=== PATIENT | male | born 1985 | race Caucasian/White ===

== ENCOUNTER 2024-12-17 22:08 | Inpatient (IN) | payer OTHER, SELFPAY ==
[2024-12-17] VITALS (10 sets, daily range): BP systolic 113–132; BP diastolic 51–80; BMI 26.8; BMI 26.1
--- NOTE | 2024-12-17 19:42 | ED.GENMED ---
History of Present Illness
General
Chief Complaint: Musculo-Skeletal Complaint
Source: patient
Exam Limitations: none
Time Seen by Provider: 12/17/24 19:33
Nursing documentation reviewed up to this point in time: agreed with
History of Present Illness
History of Present Illness:
39-year-old male with no reported chronic medical issues presents to the ER for evaluation of scapular pain. Patient reports onset of symptoms earlier today and they were constant until shortly after arrival here in the ER at which point they seem
to have resolved. He reports a deep aching pain in the left scapular region (essentially along the medial edge of the left scapula) that is localized and nonradiating. He could not reproduce it with movement. Resolved without intervention. He
denies any exertional component�onset while he was at rest. 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 He says that the pain did not feel like typical muscular pain. He
denies any associated shortness of breath, cough, GI symptoms or any other complaints. He denies any known cardiac history, does not take any medications.
Past History
Past History
ED Past Medical History: None
ED Past Surgical History: None
Social History
Tobacco: Non-smoker
Review of Systems
Review of Systems
All Other Systems: ROS reviewed and negative except as documented in HPI and ROS
Respiratory: Denies cough or trouble breathing
Cardiac: Denies chest pain or palpitations
ABD/GI: Denies abdominal pain
Musculoskeletal: Reports other (Scapular pain)
Phy Exam
Physical Exam
Physical Exam:
General: Awake, alert, oriented x3; no acute distress
Head: Normocephalic, atraumatic
Eyes: Conjunctiva normal, sclera anicteric
Throat: Airway intact, handling secretions
Neck: Trachea midline, no JVD noted
Lungs: Clear to auscultation bilaterally, no wheezing, rales, rhonchi
Heart: Regular rate and rhythm, no murmurs, gallops, or rubs
Abd: Soft, non distended, nontender
Back: No reproducible tenderness in the thoracic or lumbar spine or in the scapular region where he reports pain
Neuro: No gross deficits
Skin: no rash in area of concern
Extremities: No edema in extremities, warm and well-perfused
Scores
Heart Failure Risk
Heart Failure Risk Score: Not Applicable
Heart Score for Chest Pain Patients
STEMI patient?: Not applicable
Withdrawal Assessment of Alcohol
Withdrawal Assessment Completed?: Not applicable
Course
Orders/Labs/Results
Orders:
Orders
12/17/24 18:59
Electrocardiogram (*1) Urgent
Reason for Study: Other
Other Reason for Exam: back pain
EKG- Treatment ONCE
12/17/24 19:41
CR Chest - 2 Views Urgent
Comment:
Reason For Exam: left scapular pain
12/17/24 20:06
Complete Blood Count/With Diff Urgent
Comprehensive Metabolic Panel Urgent
D-Dimer Urgent
Troponin I Urgent
12/17/24 20:19
Urinalysis Reflex To Culture Urgent
Date Specimen was Collected: 12/17/24
Time Specimen was Collected: 20:15
12/17/24 21:02
Aspirin Chewable [Low Strength Aspirin] 324 mg PO NOW STA
Heparin 4,000 units IV NOW STA
Pharmacy Request to Place See Dose Instructions PO NOW STA
Discontinue all Active Warfarin orders?: Yes
12/17/24 21:03
PTT Urgent
Comment: Obtain baseline before beginning heparin infusion if not already collected
Nursing to Place Non Medication Order As Directed
Physician Order: PTT 6 hours after initial start of Heparin infusion
12/17/24 21:06
CARDIOLOGY CONSULT Urgent
Consulting Provider: Tulio Martinez
Was physician already notified: Yes
12/17/24 21:15
Heparin 52364 Units/250 ml 25,000 units in 250 ml IV PER PROTOCOL
Weight to be used for heparin protocol in kilograms (kg):: 73
Protocol:: Cardiac Tx/Acute Coronary
PTT Goal Range to be used:: PTT 73 to 111 seconds
Order type:: Initial
INITIAL Infusion Dose (UNITS/KG/hr) & then follow protocol:: 15 units/kg/hr
Infusion Dose in UNITS/hr & then follow protocol (UNITS/hr):: 1,100
INFUSION RATE in mL/hr & then follow protocol (mL/hr):: 11
PTT less than or equal to 64 seconds:: Increase rate by 200 units/hr (+ 2 mL/hr)
PTT 64.1 to 72.9 seconds:: Increase rate by 100 units/hr (+ 1 mL/hr)
PTT 73 to 111 seconds:: Target Range. No change in rate.
PTT 111.1 to 130.9 seconds:: Decrease rate by 100 units/hr (- 1 mL/hr)
PTT 131 to 199.9 seconds:: HOLD for 1 hr. Then decrease rate by 200 units/hr (- 2 mL/hr)
PTT greater than or equal to 200 seconds:: HOLD for 2 hrs & Notify Provider. Then decrease by 200 units/hr (-
2 mL/hr)
Lab follow-up:: Each change, PTT q6h until 2 consecutive are therapeutic. Then PTT
daily.
12/17/24 22:[address] See Dose Instructions IV DIRECTED
12/17/24 23:00
Troponin I Urgent
Abnormal Lab Results
12/17/24
20:06
MCH 31.3 H pg
(27.0-31.0)
Carbon Dioxide 31 H mmol/L
(22-30)
BUN 25 H mg/dl
(9-20)
Glucose 107 H mg/dl
(70-99)
Troponin I 3.340 H* ng/ml
12/17/24 20:06
12/17/24 20:06
Vital Signs
Initial and Last Documented VS:
Initial Vital Signs
Temp Pulse Resp BP Pulse Ox
36.6 C 76 18 132/74 100
12/17/24 19:06 12/17/24 19:06 12/17/24 19:06 12/17/24 19:06 12/17/24 19:06
Last Documented Vital Signs
Temp Pulse Resp BP Pulse Ox
36.6 C 60 20 123/69 98
12/17/24 19:06 12/17/24 20:15 12/17/24 20:15 12/17/24 20:15 12/17/24 20:15
MDM/Problems Addressed
Differential Diagnosis Includes:
Muscular strain, radiculopathy, pneumothorax, costochondritis; anginal equivalent/ACS, PE considered less likely clinically
MDM/Problems Addressed:
39-year-old male presents for evaluation of scapular pain as described above. Started earlier today and seems to have resolved now after few hours. Vitals are normal here. Physical exam as above�not reproducible with movement or palpation. His
EKG shows sinus rhythm no STEMI. Send basic labs, troponin, D-dimer. Check chest x-ray. Monitor for recurrence and reassess after the above.
Labs reviewed: CBC and CMP no clinically significant abnormalities. His D-dimer is negative. His chest x-ray reviewed by me shows no acute disease. Troponin pending.
Patient's troponin came back markedly elevated at 3.3. Consistent with NSTEMI. He is currently asymptomatic. His vital signs are normal. Will provide dose of aspirin and start on heparin infusion. Case discussed with cardiology who agreed with
treatment as above and will consult on patient. Case discussed with hospitalist for admission.
*Radiology
Radiology exam reviewed: preliminary read by ED provider and radiology read reviewed
*Pulse Oximetry
Patient hypoxic: no
*EKG
Interpreted by ED Provider?: Yes
Heart Rate: 66
Rate: normal
Rhythm: sinus
[place]: normal axis
Interval: normal interval
QRS Pattern: normal QRS
Ischemia: no ischemia
*Critical Care Note
Total Time (30-74mins, 75-104mins- exclusive of procedures): Not Applicable
Data Reviewed
Source: patient
Patient Management
Discussion with other providers: Hospitalist (Discussed with hospitalist) and Clam Grower (Discussed with pattern stamper)
Escalation/DeEscalation of care consider admission/obs:
Admission indicated
ED Attending Note
-
Portions of this chart may have been created with voice recognition software.� Occasional wrong word or��sound alike� substitutions may have occurred due to the inherent limitations of voice recognition software.
Discharge Plan
Departure
Patient Disposition: Admit
Date of Disposition: 12/17/24
Time of Disposition: 21:12
Admit to doctor: Shayne
Presentation/result/management discussed w/ accepting MD/DO: Hospitalist
Discharge Problem:
Non-ST elevation MT (NSTEMI)
Prescriptions:
No Action
Daily Vitamins
1 dose PO DAILY
Referrals:
UNKNOWN - PT NOT,INTERVIEWE [Family Provider] -
Interventions
Interventions:
*Risk Screen - Suicide Last Done: 12/17/24 19:06
*General Assessment Last Done: 12/17/24 19:24
*Neglect/Abuse Screening Last Done: 12/17/24 19:06
*ED- Fall Risk Assessment Last Done: 12/17/24 19:24
*ED COVID-19 Vaccine History Last Done: 12/17/24 19:24
ED-Musculoskeletal Assessment Last Done: 12/17/24 19:24
Discharge Date and Time
Print Language: PALAUAN
[2024-12-17 20:14] LABS: % Basophils 0.3 % (0-2); % Eosinophils 2.1 % (0-6); % Immature Granulocytes 0.2 % (0-0.5); % Lymphocytes 35.3 % (20.5-51.1); % Monocytes 8.5 % (1.7-9.3); % Neutrophils 53.6 % (42.2-75.2); Absolute Eosinophils 0.1 10^3/uL (0-0.7); Absolute Monocytes 0.5 10^3/uL (0.1-0.6); Absolute Neutrophils 3.1 10^3/uL (1.4-6.5); Hematocrit 41.8 % (39.0-52.0); Hemoglobin 14.7 g/dL (13.0-18.0); Mean Corp Hgb Conc. 35.2 g/dL (33.0-37.0); Mean Corpuscular Hgb 31.3 pg (27.0-31.0); Mean Corpuscular Volume 88.9 fL (80.0-94.0); Mean Platelet Volume 9.8 fL (7.4-10.4); Nucleated Red Blood Cells % 0 % (-); Platelet Count 185 10^3/uL (130-400); Red Cell Dist. Width 11.8 % (11.5-14.5); White Blood Cell Count 5.8 10^3/uL (4.8-10.8)
[2024-12-17 20:27] LABS: D-Dimer < 0.27 ug/mlFEU (0.00-0.50)
[2024-12-17 20:28] LABS: ALT (SGPT) 46 U/L (0-50); AST (SGOT) 53 U/L (17-59); Albumin 4.5 g/dl (3.5-5.0); Alkaline Phosphatase 65 U/L (38-126); Blood Urea Nitrogen 25 mg/dl (9-20); Calcium 9.8 mg/dl (8.4-10.2); Carbon Dioxide 31 mmol/L (22-30); Chloride 100 mmol/L (98-107); Estimated Creatinine Clearance 66 ml/min; Glucose 107 mg/dl (70-99); Potassium 3.7 mmol/L (3.5-5.1); Sodium 142 mmol/L (135-145); Total Bilirubin 0.5 mg/dl (0.2-1.3); Total Protein 7.5 g/dl (6.3-8.2); eGFR > 60.00
[2024-12-17 20:30] LABS: Urine Albumin Negative (Neg - Trace); Urine Bilirubin Negative (Negative); Urine Character Clear (Clear); Urine Glucose Negative (Negative); Urine Ketone Negative (Negative); Urine Leukocyte Negative (Negative); Urine Nitrite Negative (Negative); Urine Occult Blood Negative (Negative); Urine Specific Gravity 1.005 (<1.030); Urine Urobilinogen Negative (Neg - 1+)
[2024-12-17 20:33] LABS: Urine Color Straw
[2024-12-17] MEDS: LOW STRENGTH ASPIRIN 324 MG PO (21:20)
--- NOTE | 2024-12-17 21:27 | HPS.HSE ---
Family Physician
-
Family Physician: INTERVIEWE UNKNOWN - PT NOT
Chief Complaint
-
scapular pain
History of Present Illness
39-year-old male without medical history presenting with deep mild aching pain in the left scapular region that is localized and nonradiating. Symptoms started today and was constant until it resolved here in the ER. He could not reproduce it with
movement. He denies any worsening of symptoms with exertion since it occurred at rest. He denies any injury. 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 Pain did not feel like muscular pain. Denies shortness of breath. Denies cough. Denies
nausea vomiting or diarrhea.
He states that he has had similar pain like this in various areas in his back over the years but did not think anything of it.
He does not smoke or use any drugs. Drinks alcohol occasionally.
The only supplement he uses is creatinine.
His mother's mother had heart disease, his aunt on father side also had heart disease.
Medical History
Past Medical History
Past Medical History: Reports None
Past Surgical History: Reports None
Social History
Tobacco: Non-smoker
Alcohol: Occasional
Drug: None
Family History
Family History: CAD
Allergies / Home Medications
Allergies reflects when Allergies were last updated in [facility].
Home Medications with original date entered in [facility]
Allergy/Medication List:
Home Medications Table - record
�Medication �Instructions �Recorded �Confirmed
Daily Vitamins 1 dose PO DAILY 12/17/24 12/17/24
Review of Systems
-
History Source: Patient
A 12 point ROS was completed and negative except as noted: Yes
Constitutional: Reports No Symptoms
EENT: Reports No Symptoms
Respiratory: Reports No Symptoms
Cardiac: Reports No Symptoms
Abdomen/GI: Reports No Symptoms
: Reports No Symptoms
Musculoskeletal: Reports No Symptoms
Skin: Reports No Symptoms
Neurological: Reports No Symptoms
Endocrine: Reports No Symptoms
Hematologic/Lymphatic: Reports No Symptoms
Psych: Reports No Symptoms
Physical Exam
Vital Signs
Vital Signs
Temp Pulse Resp BP Pulse Ox
97.8 F 60 20 123/69 98
12/17/24 19:06 12/17/24 20:15 12/17/24 20:15 12/17/24 20:15 12/17/24 20:15
Physical Exam
General: Well Developed, Well Nourished and No Apparent Distress
HEENT: NormoCephalic, Moist mucous membranes and Atraumatic
Respiratory: Clear
Cardiac: S1/S2 and Regular Rhythm; No Murmur or Rub
GI: Soft, Non Tender, Non Distended and Normal Bowel Sounds; No Organomegaly
Rectal: Deferred by Provider
Musculoskeletal: No Clubbing, No Cyanosis and No Edema
Skin: No Rash
Neuro: Nonfocal/grossly intact
Laboratory Results
-
12/17/24 20:06
12/17/24 20:06
Laboratory Results
Total Bilirubin 0.5 mg/dl (0.2-1.3) 12/17/24 20:06
AST 53 U/L (17-59) 12/17/24 20:06
ALT 46 U/L (0-50) 12/17/24 20:06
Alkaline Phosphatase 65 U/L (38-126) 12/17/24 20:06
Troponin I 3.340 ng/ml H* 12/17/24 20:06
Data Reviewed
-
Lab Data: Labs Reviewed by me
Old Records: Reviewed
Impression/Plan
-
IMPRESSION:
PLAN:
# NSTEMI
- EKG shows normal sinus rhythm without any ischemic changes
- Troponin of 3.3, continue to trend
- Aspirin, heparin drip
-Check A1c and lipid panel
-N.p.o. past midnight in case catheterization performed tomorrow
- Cardiology consulted
Full code
DVT prophylaxis�heparin
N.p.o. past midnight
[2024-12-17] MEDS: HEPARIN 4000 UNITS IV (22:30)
[2024-12-17] MEDS: HEPARIN 25000 UNITS/250 ML IV (22:31)
[2024-12-17 22:38] LABS: APTT 28.3 Sec (23.4-35.0)
[2024-12-18] VITALS (13 sets, daily range): BP systolic 99–116; BP diastolic 57–80
[2024-12-18 00:32] LABS: HDL Cholesterol 58 mg/dl; LDL Cholesterol, Calculated 127 mg/dl; Total Cholesterol 207 mg/dl (50-199); Triglyceride 110 mg/dl (10-149); Very Low Density Lipoprotein 22 mg/dl (0-30)
--- NOTE | 2024-12-18 00:59 | PTCARENOTE ---
Pt. admitted to room 2252 from ED AAOx3, independent and ambulatory, VSS, NSR-SB (50's) on the monitor. Denies any chest/back discomfort. Oriented to room and plan of care, NPO for possible cath later today. Understanding verbalized.
[2024-12-18 05:21] LABS: % Basophils 0.5 % (0-2); % Eosinophils 2.2 % (0-6); % Immature Granulocytes 0.2 % (0-0.5); % Lymphocytes 41.2 % (20.5-51.1); % Monocytes 10.3 % (1.7-9.3); % Neutrophils 45.6 % (42.2-75.2); Absolute Eosinophils 0.1 10^3/uL (0-0.7); Absolute Lymphocytes 2.3 10^3/uL (1.2-3.4); Absolute Monocytes 0.6 10^3/uL (0.1-0.6); Absolute Neutrophils 2.5 10^3/uL (1.4-6.5); Hematocrit 39.7 % (39.0-52.0); Hemoglobin 13.5 g/dL (13.0-18.0); Mean Corpuscular Hgb 30.8 pg (27.0-31.0); Mean Corpuscular Volume 90.6 fL (80.0-94.0); Mean Platelet Volume 10.2 fL (7.4-10.4); Nucleated Red Blood Cells % 0 % (-); Platelet Count 174 10^3/uL (130-400); Red Blood Cell Count 4.38 10^6/uL (4.70-6.10); Red Cell Dist. Width 11.9 % (11.5-14.5); White Blood Cell Count 5.5 10^3/uL (4.8-10.8)
[2024-12-18 05:48] LABS: ALT (SGPT) 36 U/L (0-50); AST (SGOT) 44 U/L (17-59); Albumin 3.7 g/dl (3.5-5.0); Alkaline Phosphatase 53 U/L (38-126); Blood Urea Nitrogen 24 mg/dl (9-20); Carbon Dioxide 29 mmol/L (22-30); Chloride 105 mmol/L (98-107); Estimated Creatinine Clearance 81 ml/min; Glucose 100 mg/dl (70-99); Potassium 3.8 mmol/L (3.5-5.1); Sodium 143 mmol/L (135-145); Total Bilirubin 0.5 mg/dl (0.2-1.3); Total Protein 6.2 g/dl (6.3-8.2); eGFR > 60.00
[2024-12-18 05:59] LABS: APTT 51.8 Sec (23.4-35.0)
--- NOTE | 2024-12-18 07:35 | CON.CAR ---
Addendum entered and electronically signed by Gabriel Machado DO 12/18/24 11:08:
I saw and examined the patient.
The Time Buyer's note was reviewed and I agree with the note.
Comment:
Plan:
Trop 4.6 and still trending, cont to trend until it peaks.
Chest pain concerning for NSTEMI vs coronary dissection vs myocarditis and discussed further eval with left heart cath and pt is agreeable.
Echo is pending
Cont IV Heparin
Cont ASA
Add Toprol XL 12.5 mg daily
Add statin, LDL 127
Monitor EKG, last EKG stable.
Further rec to follow pending clinical course.
Discussed with and nursing at bedside.
HPI: Patient came to [facility] ER last night with chest pain and was admitted with elevated Troponin and cardiology has been consulted. 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
into Wednesday morning, it woke him from sleep. The pain went away and then returned while standing in the kitchen last night making dinner and he felt a sense of dread/doom that caused him to come to the ER. Patient says that he has had aches and
pains before that felt similar in location and intensity, but this pain made him scared and so he came to the ER and his initial Troponin was 3.3 and then second Troponin was 4.6. Patient has not had recurrence of pain since admission. Patient
denies taking supplements other than creatine, he says he does not use any performance enhancing drugs and does not drink excessive caffeine. No strong Fh of premature CAD.
Distant smoker quit over 20 yrs ago
Original Note:
Consultation
Consultation Request
Date/Time Consultation Requested: 12/17/24 at 2106
Date/Time Consultation Performed: 12/18/24 at 0737
Requesting Provider: Dr. Bailey
Performing Provider: Dr. Ingram
Reason for Consultation: Chest pain, elevated Troponin
Medical History
-
History of Present Illness:
Patient came to [facility] ER last night with chest pain and was admitted with elevated Troponin and cardiology has been consulted. 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
Wednesday morning, it woke him from sleep. The pain went away and then returned while standing in the kitchen last night making dinner and he felt a sense of dread/doom that caused him to come to the ER. Patient says that he has had aches and pains
before that felt similar in location and intensity, but this pain made him scared and so he came to the ER and his initial Troponin was 3.3 and then second Troponin was 4.3. Patient has not had recurrence of pain since admission. Patient denies
taking supplements other than creatine, he says he does not use any performance enhancing drugs and does not drink excessive caffeine. No strong Fh of premature CAD.
PMH:
None
Past Medical History
Past Medical History: Other (in HPI)
Past Surgical History: None
Social History
Tobacco: Former Smoker (smoked from teenager to very early 19w)
Alcohol: Other (2-4 glasses of wine on a weekend)
Drug: None
Personal:
Living: With Family
Family History
Family History: Other (parents and brother healthy, maternal grandmother with CHF. Patient's 3 y/o son was recently diagnosed as a type 1 diabetic)
Allergies / Home Medications
Allergy/AdvReac Type Severity Reaction Status Date / Time
No Known Allergies Allergy Unverified 03/06/20 18:20
�Medication �Instructions �Recorded �Confirmed �Type
Daily Vitamins 1 dose PO DAILY 12/17/24 12/17/24 History
Review of Systems
-
History Source: Patient
All other systems: Negative unless noted
Physical Exam
Vital Signs
Temp Pulse Resp BP Pulse Ox
97.7 F 56 18 104/64 100
12/18/24 03:56 12/18/24 05:00 12/18/24 03:56 12/18/24 03:55 12/18/24 03:56
GEN: NAD. AAOx3
HEENT: EOMI, MMM
LUNGS: RA. CTA B/L, no wheeze
CV: SR on tele. Reg, S1/S2, no murmur
ABD: soft, BS+, NT, ND
EXT: No clubbing, cyanosis, lesions or edema B/L
NEURO: Gross non-focal
SKIN: Warm, dry and pink. No rash
Lab Results
12/18/24 04:00
12/18/24 04:00
Troponin I Cancelled 12/18/24 11:35
Impression / Plan
-
PCP: [facility]
Card: None
Impression:
Chest pain and elevated Troponin on admission 12/17/24
Chest pain, possible ACS
Elevated Troponin
Hyperglycemia
Echo 12/18/24: Study pending
Plan:
-Patient came to [facility] ER last night with chest pain and was admitted with elevated Troponin and cardiology has been consulted. 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
Wednesday morning, it woke him from sleep. The pain went away and then returned while standing in the kitchen last night making dinner and he felt a sense of dread/doom that caused him to come to the ER. Patient says that he has had aches and pains
before that felt similar in location and intensity, but this pain made him scared and so he came to the ER and his initial Troponin was 3.3 and then second Troponin was 4.3. Patient has not had recurrence of pain since admission. Patient denies
taking supplements other than creatine, he says he does not use any performance enhancing drugs and does not drink excessive caffeine. No strong Fh of premature CAD.
-ECG reviewed by me is SR. No acute ischemic changes
-Initial Troponin was 3.3 and then 4.3. Continue to trend
-Recheck ECG now, ordered by me.
-Cont Heparin gtt, renewed by me
-Cont aspirin 81 mg daily
-LDL 127 and new to atorvastatin 40 mg daily, ordered by me 12/18/24
-Fasting blood glucose 100 this morning, check HgbA1c
-Talked with patient and recommend cardiac cath today
--- NOTE | 2024-12-18 07:45 | PTCARENOTE ---
Assumed care of pt from prev nsg shift; Pt AAOx3 w/no c/o CP or SOB. Pt's VSS w/HR 60's-70's & BP 105/61 this AM. Pt is SR/SB on telemetry monitoring. Pt w/IV Heparin drip infusing through patent IV line as ordered. Pt w/call arana within reach &
plan of care ongoing.
--- NOTE | 2024-12-18 09:59 | W.PN.UPDATE ---
Addendum entered and electronically signed by Nabila Bailey MD 12/18/24 14:19:
Echo normal LV size, wall thickness and systolic function. EF 55 to 60% normal diastolic function
Cardiac catheterization- Nonobstructive coronary disease with preserved LV systolic function.
Per discussion with cardiology this is likely viral myopericarditis
Follow troponin until it peaks
Start colchicine 0.6 twice daily and also aspirin 325 twice daily per D/W Cards
Will stop beta-ellie and statin started today for non-STEMI which is not the case.
D/W
Original Note:
Update Note
Progress Note Update
I saw and evaluated the patient. I reviewed the resident�s note and agree with findings and plan as documented in the resident�s note except for changes in my documentation
39-year-old male with scapular pain
Chest x-ray-no acute changes
CVS: S1-S2 normal
Chest: CTA B/L
Abdomen: Soft, NT / Bowel sounds present
Extremities: No edema, normal pulses
CRUSHER WET GROUND MICA: Non focal exam
# Non-STEMI
EKG without any ischemic changes
Troponin 3.3 on admission, follow troponin until it peaks
Continue aspirin and heparin drip
Cardiac catheterization planned for 12/18/2024
# DVT prophylaxis-heparin
# Full code
Discussed with cardiology
D/W Family at bed side
Part of this note was created using voice recognition system. Occasional wrong word or��sound alike� substitutions may have inadvertently occurred due to the inherent limitations of voice recognition software. If noted kindly bring it to my
attention for correction.
--- NOTE | 2024-12-18 10:01 | CM ---
Reviewed chart. Met [facility] and Mrs. He to review discharge plans. He states prior to admission he resides with his spouse and four children in a two story home with two steps to enter. He states he has a full flight of steps to get to
bedroom/full bathroom. He states he has a powder room on the first floor. He states prior to admission he was independent with ambulation and adls. He states he gimenez not have any DME in the home. He states he has a prescription plan and uses [facility]. Medical work-up in progress. The discharge plan is to return home with his spouse and children when medically stable.
[2024-12-18] MEDS: LOW STRENGTH ASPIRIN 81 MG PO (10:18)
[2024-12-18 10:19] LABS: Glycohemoglobin (HgbA1c) 5.3 % (4.0-5.6)
[2024-12-18] MEDS: TOPROL XL 25 MG PO (10:34)
--- NOTE | 2024-12-18 11:40 | PTCARENOTE ---
Report given to Aurelia in the cardiac cath lab radiology technologist. Pt voided in the BR & removed undergarments. Hep IV drip placed on hold. Pt transported in bed to cardiac cath lab radiology technologist. Plan of care ongoing.
--- NOTE | 2024-12-18 13:00 | PTCARENOTE ---
Rec'd report from AJ in the record label intern; Rec'd pt back AAOx3 w/no c/o CP. Pt w/ R radial band in place w/no signs or symptoms of bleeding or hematoma. Pt's VSS. Activity & RUE restrictions discussed w/pt & pt's spouse. Assisted pt w/ calling for lunch.
Pt w/call arana within reach & plan of care ongoing.
--- NOTE | 2024-12-18 13:30 | ITS.CL.CATH ---
Addendum entered and electronically signed by Ad Ingram MD 12/18/24 14:23:
Attending addendum: Patients reported that she and her had a viral illness earlier this week. Symptoms are reportedly worse when lying then when sitting. Troponin elevated. These finding may be most consistent with a
myopericarditis. Treatment for myopericarditis would include colchicine 2-3 months and aspirin 325 mg po bid for a few weeks. He should avoid heavy exercise for 3 months and competitive exercise / sports for 6 months.
Original Note:
[employer] - Catheterization
Cardiac Catheterization
Procedure Report:
LEFT HEART CATHETERIZATION
Date of Procedure: December 18, 2024
Referring: Dr. Gabriel Machado
PROCEDURES:
1. Left heart catheterization with coronary and single-plane left ventriculography
INDICATION: This is a 39-year-old gentleman who is physically very active. He experienced some left shoulder discomfort leading him to seek medical attention. His troponin was elevated at 3.3 ng/mL and increased to 4.6 ng/mL. No recurrence since
admission. The patient's states that she had a viral illness several days prior to this and reported the patient experienced a sore throat and viral type symptoms several days before his hospitalization. He is now referred for coronary
angiography.
ACCESS: Right radial artery, 6 Japanese sheath
HEMODYNAMICS : (mmHg)
AO (s/d) : 100/73, 88
LV (s/d) : 108/8
LVEDP : 18
CORONARY FINDINGS
DOMINANCE: Right
LEFT MAIN: Normal
LEFT ANTERIOR DESCENDING: The LAD arises normally from the left main and runs in the anterior interventricular groove. 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 The LAD tapers to a small caliber vessel as it approaches but does not wraparound the
apex. No focal obstructive stenosis is appreciated.
CIRCUMFLEX: The circumflex is a small caliber nondominant vessel giving rise to a small OM1 and terminating in a medium caliber OM 2. Only minor luminal irregularities are noted.
RIGHT CORONARY ARTERY: The right coronary artery is a large-caliber dominant vessel that has only minor luminal irregularities over its course. The PDA is large and widely patent. The posterolateral branch is large and widely patent
VENTRICULOGRAPHY: Left ventriculography is performed in an GIBSON projection. The digital single-plane left ventricular ejection fraction is estimated at 60%
SEDATION: 27 minutes of procedural sedation was utilized. An independent regional medical director was present to assist with and help manage the patient's level of consciousness and physiologic status.
RADIATION SUMMARY: Fluoro Time (min): 3.2, Dose (mGy): 253, DAP (Gy.cm2) : 18.4
Closure Device: TR band
CONCLUSIONS
1. Nonobstructive coronary artery disease.
2. Preserved LV systolic function
Copy to: Dr. Gabriel Machado
--- NOTE | 2024-12-18 15:24 | W.PN.HOSP.TC ---
Addendum entered and electronically signed by Nabila Bailey MD 12/19/24 12:53:
I saw and evaluated the patient. I reviewed the resident�s note and agree with findings and plan as documented in the resident�s note.
pt was feeling great
No pain.
Tolerating meds
Aware re physical limitations
D/W Cards
Will discharge as planned.
Original Note:
Today's Communication/Plan
-
- Started unconscious in an aspirin 321 mg p.o. twice daily due to myocarditis
- Discontinued heparin drip and metoprolol
- Follow-up vitals and monitor telemetry
Assessment / Plan
Assessment / Plan
# Elevated troponin levels likely secondary to myopericarditis vs Non-STEMI
-EKG without any ischemic changes
-Echo 12/18/24:Normal left ventricular size, wall thickness and systolic function. No regional wall motion abnormalities are seen. LV ejection fraction is 55-60% by volumetric assessment. Normal diastolic function.
-Cardiac catheterization 12/18/24: Nonobstructive coronary artery disease, Preserved LV systolic function
-Troponin 3.3 on admission, elevated to 4.6-trend troponin levels every 6 hours
-Hx of upper respiratory infection earlier this week--findings can be complicated with myopericarditis--recommended to start colchicine for 2 to 3 months and aspirin 325 mg p.o. twice daily for a few weeks by cardiology/also recommended to avoid
heavy exercise for 3 months and sports for 6 months
- Discontinued heparin drip and metoprolol
-Cardiac catheterization was planned for today
# Hyperlipidemia
-LDL 127, HDL 58
-
# DVT prophylaxis-heparin
- Started atorvastatin 40 mg p.o.
# Full code
Anticipated Discharge: Within 24 hours
Subjective/Interval History
-
Date of Service: December 18, 2024
The patient denies chest pain, back pain and shortness of breath. He denies taking any [id number] medication. He reports his scapular pain disappeared.
Objective Data
-
Labs:
Laboratory Results
12/18/24 12/18/24 12/18/24
04:00 05: 12:20
WBC 5.5
Hgb 13.5
Hct 39.7
Plt Count 174
APTT 51.8 H Cancelled
Sodium 143
Potassium 3.8
Chloride 105
Carbon Dioxide 29
BUN 24 H
Creatinine 1.1
Glucose 100 H
Calcium 9.0
Total Bilirubin 0.5
AST 44
ALT 36
Alkaline Phosphatase 53
Vital Signs:
Vital Signs
Temp Pulse Resp BP Pulse Ox
99.0 F 51 18 108/67 97
12/18/24 12:58 12/18/24 14:00 12/18/24 12:58 12/18/24 14:00 12/18/24 14:00
I&O
12/17/24 12/18/24 12/19/24
06:59 06:59 06:59
Intake Total 1360 / 1360
Balance 1360 / 1360
Review of Systems
-
History Source: Patient
Constitutional: Reports No Symptoms
Physical Exam
-
General: Well Developed, Well Nourished, Comfortable and Conversant
HEENT: Normocephalic and Atraumatic
Respiratory: Clear to Auscultation
Cardiac: Regular Rhythm, S1/S2 and Bradycardic
GI: Soft, Nontender and Nondistended
Musculoskeletal: No Clubbing and No Cyanosis
Skin: Warm
Neuro: Awake, Alert, Oriented, AO x 3 and Nonfocal/Grossly Intact
Psych: Calm
[2024-12-18] MEDS: ASPIRIN 325 MG PO (20:40)
[2024-12-18] MEDS: COLCHICINE 0.6 MG PO (20:41)
--- NOTE | 2024-12-19 01:24 | PTCARENOTE ---
Assumed pt care at 2300. PT SR on TELE monitor and denies any pain or discomfort. Plan of care on going. See flowchart and MAR for full pt care and assessment.
[2024-12-19 03:53] VITALS: BP 110/55
[2024-12-19 04:29] LABS: Hematocrit 39.3 % (39.0-52.0); Hemoglobin 13.5 g/dL (13.0-18.0); Mean Corp Hgb Conc. 34.4 g/dL (33.0-37.0); Mean Corpuscular Hgb 31.3 pg (27.0-31.0); Mean Platelet Volume 9.7 fL (7.4-10.4); Platelet Count 188 10^3/uL (130-400); Red Blood Cell Count 4.32 10^6/uL (4.70-6.10); White Blood Cell Count 5.2 10^3/uL (4.8-10.8)
[2024-12-19 04:57] LABS: ALT (SGPT) 34 U/L (0-50); AST (SGOT) 32 U/L (17-59); Albumin 3.4 g/dl (3.5-5.0); Alkaline Phosphatase 42 U/L (38-126); Blood Urea Nitrogen 23 mg/dl (9-20); Calcium 9.4 mg/dl (8.4-10.2); Carbon Dioxide 28 mmol/L (22-30); Chloride 107 mmol/L (98-107); Estimated Creatinine Clearance 89 ml/min; Glucose 95 mg/dl (70-99); Potassium 4.2 mmol/L (3.5-5.1); Sodium 142 mmol/L (135-145); Total Bilirubin 0.4 mg/dl (0.2-1.3); Total Protein 6.2 g/dl (6.3-8.2); eGFR > 60.00
[2024-12-19 07:12] VITALS: BP 116/61
[2024-12-19 07:13] VITALS: BP 116/60
--- NOTE | 2024-12-19 07:52 | PTCARENOTE ---
Assumed care of pt from prev nsg shift; Pt AAOx3 w/no c/o CP or SOB. Pt's VSS w/HR 40'-60's & BP 116/61 this AM. Pt is SR/SB on telemetry monitoring. Pt w/R radial access site w/dressing C/D/I & no signs or symptoms of bleeding or hematoma. Pt
anticipating D/C today. Plan of care ongoing.
--- NOTE | 2024-12-19 08:39 | W.PN.HOSP.TC ---
Today's Communication/Plan
-
-Discharge planning today
Assessment / Plan
Assessment / Plan
# Elevated troponin levels likely secondary to myopericarditis
-EKG without any ischemic changes
-Echo 12/18/24:Normal left ventricular size, wall thickness and systolic function. No regional wall motion abnormalities are seen. LV ejection fraction is 55-60% by volumetric assessment. Normal diastolic function.
-Cardiac catheterization 12/18/24: Nonobstructive coronary artery disease, Preserved LV systolic function
-Troponin levels trending down- no need further follow up
-Hx of upper respiratory infection earlier this week--findings can be complicated with myopericarditis--recommended to start colchicine for 2 to 3 months and aspirin 325 mg p.o. twice daily for a few weeks by cardiology/also recommended to avoid
heavy exercise for 3 months and sports for 6 months by cardiology
- Discontinued heparin drip and metoprolol
# Hyperlipidemia
-LDL 127, HDL 58
-Started atorvastatin 40 mg
# DVT prophylaxis-heparin
# Full code
Anticipated Discharge: Today
Subjective/Interval History
-
Date of Service: December 19, 2024
Patient denies any chest pain, back pain and shortness of breath. Patient reports feeling great without any problem.
Objective Data
-
Labs:
Laboratory Results
12/19/24
04:00
WBC 5.2
Hgb 13.5
Hct 39.3
Plt Count 188
Sodium 142
Potassium 4.2
Chloride 107
Carbon Dioxide 28
BUN 23 H
Creatinine 1.0
Glucose 95
Calcium 9.4
Total Bilirubin 0.4
AST 32
ALT 34
Alkaline Phosphatase 42
Vital Signs:
Vital Signs
Temp Pulse Resp BP Pulse Ox
98.3 F 52 16 116/60 99
12/19/24 07:12 12/19/24 07:13 12/19/24 07:12 12/19/24 07:13 12/19/24 07:13
I&O
12/18/24 12/19/24 12/20/24
06:59 06:59 06:59
Intake Total 1360 / 1360
Balance 1360 / 1360
Review of Systems
-
History Source: Patient
All other systems: Reviewed and negative
Physical Exam
-
General: Well Developed, Well Nourished, Comfortable and Conversant
HEENT: Normocephalic and Atraumatic
Respiratory: Clear to Auscultation
Cardiac: Regular Rhythm, S1/S2 and Bradycardic
GI: Soft, Nontender and Nondistended
Musculoskeletal: No Clubbing, No Cyanosis and No Edema
Skin: Warm
Neuro: Awake, Alert, Oriented and AO x 3
[2024-12-19] MEDS: COLCHICINE 0.6 MG PO (09:28)
[2024-12-19] MEDS: ASPIRIN 325 MG PO (09:28)
--- NOTE | 2024-12-19 10:08 | W.DCSUMMARY ---
Discharge Summary
Discharge Data
Date of Admission: 12/17/24
Date of Discharge: 12/19/24
-
Pending Results: No
Hospital Course
Disposition :Home
Primary care physician : Tomas Garcia PA-C
Principal Discharge diagnosis : Myopericarditis
Chronic Discharge diagnosis : Hyperlipidemia
Hospital Course : The patient presented to ER on 12/17/24 complaining from deep mild aching pain in the left scapular region that is localized and nonradiating. His EKG showed normal sinus rhythm without any ischemic changes but his troponin
level was found elevated to 3.3. His other lab results were not remarkable. He was admitted with a pre-diagnosis of NSTEMI and had his stat troponin level resulted elevated. He was obtained an Echo which was not remarkable. He was obtained a
cardiac catheterization which showed Nonobstructive coronary artery disease, Preserved LV systolic function. Given history of having a viral infection in last week, the patient was considered having myopericarditis by cardiology. He was recommended
to start colchicine for 2 to 3 months and aspirin 325 mg p.o. twice daily for a few weeks. The patient was recommended to have a follow up with his PCP and cardiology.
Important imaging findings :
Chest X ray 12/17/24
FINDINGS:
The heart size and pulmonary vasculature appears within normal limits. The trachea is midline. There is mild elevation of the anterior right hemidiaphragm. There is no focal airspace opacity suspicious for pneumonia. There is no radiographic
evidence for inflammatory interstitial pneumonitis in the lungs. There is no radiographic evidence for pleural effusion or pneumothorax.
There is a minimal right convex curvature of the midthoracic spine. There are small multilevel vertebral body endplate osteophytes throughout the thoracic spine. There is mild bilateral osteoarthritis of the acromioclavicular joints.
There is no radiographic evidence for pneumoperitoneum or abnormal bowel dilatation in the upper abdomen.
IMPRESSION:
No radiographic evidence for cardiopulmonary disease.
Procedure findings :
ECHO 12/18/2024
CONCLUSIONS
Normal left ventricular size, wall thickness and systolic function. No regional
wall motion abnormalities are seen. LV ejection fraction is 55-60% by
volumetric assessment. Normal diastolic function.
Indications:
CHEST PAIN
Rhythm: Sinus
Portable Study: Yes
Technical Quality: Fair
Contrast: None
BP: 104 / 64
PROCEDURE
A complete Transthoracic Echocardiogram was performed utilizing two-dimensional
evaluation with color flow and spectral Doppler analysis.
FINDINGS
Left Ventricle
Normal left ventricular size, wall thickness and systolic function. No regional
wall motion abnormalities are seen. LV ejection fraction is 55-60% by
volumetric assessment. Normal diastolic function.
Right Ventricle
Left Atrium
Indexed LA volume is within normal range (15-34 mL/m2).
Right Atrium
Normal right atrium.
Mitral Valve
Mitral valve opens normally. Mild mitral regurgitation.
Aortic Valve
Trileaflet aortic valve. The aortic valve is structurally normal. Trace aortic
insufficiency.
Tricuspid Valve
Tricuspid valve opens normally. Mild tricuspid regurgitation. Estimated
pulmonary artery pressure of 28 mmHg assuming a right atrial pressure of 8
mmHg.
Pulmonic Valve
The pulmonic valve is structurally normal. Trace pulmonic insufficiency.
Pericardium\\Pleura
No pericardial effusion.
Aorta
The aortic root is of normal size.
Other Finding
The IVC is mildly dilated and demonstrates normal respiratory variation.
Interatrial septum is intact with no evidence of shunting by color flow
Doppler. No intracardiac mass or thrombus formation seen.
MEASUREMENTS (Male / Female) Normal Values
2D ECHO
LV Diastolic Diameter PLAX 5.4 cm 4.2 - 5.9 / 3.9 - 5.3 cm
LV Systolic Diameter PLAX 3.7 cm
IVS Diastolic Thickness 0.9 cm 0.6 - 1.0 / 0.6 - 0.9 cm
LVPW Diastolic Thickness 0.9 cm 0.6 - 1.0 / 0.6 - 0.9 cm
LV Relative Wall Thickness 0.3
LVOT Diameter 2.0 cm
LA Area 4C View 14.5 cm2 <= 20 cm2
LA Length 4C 4.8 cm
LA Volume 33.2 cm3 18 - 58 / 22 - 52 cm3
LA Volume Index 25.3 cm3/m2 16 - 34 cm3/m2
RV Diastolic Basal Diameter 3.6 cm 2.0 - 2.8 cm
RV Diastolic Mid Diameter 3.3 cm 2.7 - 3.3 cm
Aorta at Sinotubular Diameter 2.9 cm
Ascending Aorta Diameter 2.9 cm
Aorta at Sinuses Diameter 3.1 cm
M-MODE
AV Cusp Separation MM 2.1 cm
DOPPLER
LVOT Peak Velocity 110.0 cm/s
LVOT Peak Gradient 4.8 mmHg
LVOT Velocity Time Integral 23.9 cm
LVOT Stroke Volume 75.1 cm3
LVOT Stroke Volume Index 40.4 ml/m2 empty
LVOT Cardiac Index 2506.3 cm3/min
MV Area PHT 4.0 cm2
MR Peak Velocity 454.0 cm/s
MR Peak Gradient 82.4 mmHg
MR ERO PISA 0.1 cm2
MR Regurgitant Volume PISA 10.3 cm3
Mitral E Point Velocity 56.1 cm/s
Mitral A Point Velocity 32.6 cm/s
Mitral E to A Ratio 1.7
LV E' Lateral Velocity 19.6 cm/s
Mitral E to LV E' Lateral Ratio 2.9
LV E' Septal Velocity 8.1 cm/s
Mitral E to LV E' Septal Ratio 7.0
TR Peak Velocity 222.0 cm/s
TR Peak Gradient 19.7 mmHg
3D ECHO
LV Ejection Fraction 3D 59.0 %
Cardiac Catheterization
Bg Shrestha MD, [facility]
(Electronically Signed)
Final Date: 18 Dec 2024 11:41
Procedure Report:
LEFT HEART CATHETERIZATION
Date of Procedure: December 18, 2024
Referring: Dr. Gabriel Machado
PROCEDURES:
1. Left heart catheterization with coronary and single-plane left ventriculography
INDICATION: This is a 39-year-old gentleman who is physically very active. He experienced some left shoulder discomfort leading him to seek medical attention. His troponin was elevated at 3.3 ng/mL and increased to 4.6 ng/mL. No recurrence since
admission. The patient's states that she had a viral illness several days prior to this and reported the patient experienced a sore throat and viral type symptoms several days before his hospitalization. He is now referred for coronary
angiography.
ACCESS: Right radial artery, 6 Spanish sheath
HEMODYNAMICS : (mmHg)
AO (s/d) : 100/73, 88
LV (s/d) : 108/8
LVEDP : 18
CORONARY FINDINGS
DOMINANCE: Right
LEFT MAIN: Normal
LEFT ANTERIOR DESCENDING: The LAD arises normally from the left main and runs in the anterior interventricular groove. 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 The LAD tapers to a small caliber vessel as it approaches but does not wraparound the
apex. No focal obstructive stenosis is appreciated.
CIRCUMFLEX: The circumflex is a small caliber nondominant vessel giving rise to a small OM1 and terminating in a medium caliber OM 2. Only minor luminal irregularities are noted.
RIGHT CORONARY ARTERY: The right coronary artery is a large-caliber dominant vessel that has only minor luminal irregularities over its course. The PDA is large and widely patent. The posterolateral branch is large and widely patent
VENTRICULOGRAPHY: Left ventriculography is performed in an GIBSON projection. The digital single-plane left ventricular ejection fraction is estimated at 60%
SEDATION: 27 minutes of procedural sedation was utilized. An independent auditor medical claims was present to assist with and help manage the patient's level of consciousness and physiologic status.
RADIATION SUMMARY: Fluoro Time (min): 3.2, Dose (mGy): 253, DAP (Gy.cm2) : 18.4
Closure Device: TR band
CONCLUSIONS
1. Nonobstructive coronary artery disease.
2. Preserved LV systolic function
Discharge Plan
-
Patient Disposition: Home (Routine Discharge)
Discharge Diagnosis/Procedures: Myopericarditis
Diet: Low Cholesterol
Activity: No strenuous activity
Additional Activity: Light exercise and window/door carrying with work, but no weightlifting to muscle fatigue.
Driving Restrictions: No driving for 24 hours
Bathing Restrictions: None
Stand Alone Forms: DC Instructions- Cath/EP Lab
Referrals:
Tomas Garcia PA-C [Family Provider] - in one to two months
Gabriel Machado, [Active] - 01/02/25 4:20 pm (You have an appt to see Dr. Machado's physician assistant chief engineer, Aurelia, at the [facility] office on 01/02/25 at 4:20 PM. You are also scheduled to see Dr. Machado at the [facility] office on 02/21/25 at 2 PM. Please call
[phone] if you need to reschedule.)
Additional Discharge Medication Instructions: -Take aspirin 325 mg twice a day for 2 weeks, stop 01/02/25.
-Take colchicine 0.6 mg twice a day for 3 months, if you develop diarrhea or other GI symptoms then please call the office.
Prescriptions:
New
aspirin 325 mg Tablet
325 mg PO BID Qty: 28 0RF
famotidine 20 mg Tablet
20 mg PO BID Qty: 60 2RF
colchicine 0.6 mg Tablet
0.6 mg PO BID Qty: 60 2RF
Continued
Daily Vitamins
1 dose PO DAILY
Discharge Orders:
Discharge Patient (As Directed); Ordered 12/19/24
Ordered By: Nabila Bailey
Care Plan Goals
Care Plan Goals:
Problem: Readiness for enhanced knowledge related to diagnosis and treatment plan
Goal: Understand your diagnosis and treatment plan needs, including medications if applicable.
Instructions: Know your diagnosis, underlying causes and treatment plan options, including medications if applicable. Consult with your health care team to learn about your diagnosis and treatment plan, including medications if applicable.
Discharge Date and Time
Discharge Date/Time: 12/19/24 14:05
Print Language: ECUADOREAN
--- NOTE | 2024-12-19 10:20 | W.PN.CARDCBS ---
Addendum entered and electronically signed by Gabriel Machado DO 12/19/24 11:58:
I saw and examined the patient.
The Ocean Export Agent's note was reviewed and I agree with the note.
Comment:
Plan:
Reviewed myopericarditis restrictions with him
Cont ASA for 2 weeks and colchicine for 3 months.
Discussed that he should not do competitive lifting or exercise to failure for at least the next 3 months and that he will require cardiac clearance for maximum exercise.
Reviewed his echo which is structurally normal.
Stable for d/c from cardiac standpoint.
Discussed with primary service.
Original Note:
Today's Communication / Plan
-
Aspirin 325 mg BID for 2 weeks
Colchicine 0.6 mg BID for 3 months
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
Stable for d/c from a cardiac standpoint
Impression / Plan
-
PCP: [facility]
Card: Dr. Machado
Impression:
Chest pain and elevated Troponin on admission 12/17/24
Chest pain, possible myopericarditis
Elevated Troponin
Nonobstructive CAD by cath 12/18/24
Hyperglycemia with normal HgbA1c
Echo 12/18/24: EF 55 to 60%, no WMA, normal diastolic function
Plan:
-Patient had nonobstructive CAD by cath 12/18/24
-Patient with peak Troponin 4.63, no WMA, no acute ischemic changes. Patient with recent viral illness. Will manage as possible myopericarditis
-New to aspirin 325 mg BID for 2 weeks
-New to colchicine 0.6 mg BID for 3 months. Patient to let us know if he develops diarrhea and we can decrease dose to daily.
-LDL 127, atorvastatin 40 mg daily started and then stopped
-He can continue with his work activity which includes lifting windows and doors as a contractor, but he cannot lift weights to fatigue. He can complete light activity.
-Patient stable for d/c from cardiac standpoint
HPI: Patient came to [facility] ER last night with chest pain and was admitted with elevated Troponin and cardiology has been consulted. 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
into Wednesday morning, it woke him from sleep. The pain went away and then returned while standing in the kitchen last night making dinner and he felt a sense of dread/doom that caused him to come to the ER. Patient says that he has had aches and
pains before that felt similar in location and intensity, but this pain made him scared and so he came to the ER and his initial Troponin was 3.3 and then second Troponin was 4.3. Patient has not had recurrence of pain since admission. Patient
denies taking supplements other than creatine, he says he does not use any performance enhancing drugs and does not drink excessive caffeine. No strong Fh of premature CAD.
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
Subjective
Date of Service: December 19, 2024
He feels well, no more shoulder pain
Objective
Labs:
12/19/24 04:00
12/19/24 04:00
Labs
Hgb 13.5 g/dL (13.0-18.0) 12/19/24 04:00
Hct 39.3 % (39.0-52.0) 12/19/24 04:00
Plt Count 188 10^3/uL (130-400) 12/19/24 04:00
APTT Cancelled 12/18/24 12:20
Sodium 142 mmol/L (135-145) 12/19/24 04:00
Potassium 4.2 mmol/L (3.5-5.1) 12/19/24 04:00
BUN 23 mg/dl (9-20) H 12/19/24 04:00
Creatinine 1.0 mg/dL (0.7-1.3) 12/19/24 04:00
Glucose 95 mg/dl (70-99) 12/19/24 04:00
Troponins
12/17/24 12/18/24 12/18/24
20:06 04:00 05:35
Troponin I 3.340 H* 4.630 H* D Cancelled
12/18/24 12/18/24 12/18/24
08:15 10:00 11:35
Troponin I Cancelled Cancelled Cancelled
12/18/24
15:16
Troponin I 1.960 H*
Vital Signs and I&O:
Vital Signs
Temp Pulse Resp BP Pulse Ox
98.3 F 52 16 116/60 99
12/19/24 07:12 12/19/24 07:13 12/19/24 07:12 12/19/24 07:13 12/19/24 07:13
Vital Signs
Temp Pulse Resp BP Pulse Ox
98.3 F 52 16 116/60 99
12/19/24 07:12 12/19/24 07:13 12/19/24 07:12 12/19/24 07:13 12/19/24 07:13
Intake & Output
12/17/24 12/18/24 12/19/24 12/20/24
06:59 06:59 06:59 06:59
Intake Total 1360 / 1360
Balance 1360 / 1360
Physical Exam
Physical Exam
GEN: NAD. AAOx3
HEENT: EOMI, MMM
LUNGS: RA. No wheeze
CV: SR on tele.
ABD: ND
EXT: No edema B/L
NEURO: Gross non-focal
SKIN: No rash
--- NOTE | 2024-12-19 10:52 | CM ---
Reviewed chart. Met with and Mrs. He to review discharge plans. He states he is feeling well and maybe able to go home soon. Prior to admission he resides with his spouse and four children in a two story home with two steps to enter. He
has a full flight of steps to get to bedroom/full bathroom. He has a powder room on the first floor. Prior to admission he was independent with ambulation and adls. He does not have any DME in the home. He has a prescription plan and uses [facility], Medical work-up in progress. The discharge plan is to return home with his spouse and children when medically stable.
[2024-12-19 11:23] VITALS: BP 120/54
[2024-12-19 11:25] VITALS: BP 120/54
--- NOTE | 2024-12-19 14:11 | PTCARENOTE ---
D/C instructions discussed w/pt. Pt's IV line & personnel monitor D/C'd. Pt opted to walk out w/staff escort.
== END 2024-12-19 14:05 | disposition home or self-care (01) | DRG 281 ==
LOC: IVU 22:08
PROVIDERS: Internal Medicine Interventional Cardiology; Nurse Practitioner; Student in an Organized Health Care Education/Training Program; ADMITTING PHYSICIAN Hospitalist; ATTENDING PHYSICIAN Hospitalist; EMERGENCY PHYSICIAN Emergency Medicine; FAMILY PHYSICIAN Physician Assistant; OTHER PHYSICIAN Nuclear Medicine Nuclear Cardiology
PROC: 4A023N7 Measurement of Cardiac Sampling and Pressure, Left Heart, Percutaneous Approach (ICD-10-PCS; 2024-12-18)
PROC: B2151ZZ Fluoroscopy of Left Heart using Low Osmolar Contrast (ICD-10-PCS; 2024-12-18)
PROC: B2111ZZ Fluoroscopy of Multiple Coronary Arteries using Low Osmolar Contrast (ICD-10-PCS; 2024-12-18)
DX: I21.4 Non-ST elevation (NSTEMI) myocardial infarction (principal); I31.9 Disease of pericardium, unspecified; Q24.5 Malformation of coronary vessels; E78.5 Hyperlipidemia, unspecified; I25.10 Atherosclerotic heart disease of native coronary artery without angina pectoris; Z87.891 Personal history of nicotine dependence; M25.78 Osteophyte, vertebrae; M19.011 Primary osteoarthritis, right shoulder; M19.012 Primary osteoarthritis, left shoulder; Z82.49 Family history of ischemic heart disease and other diseases of the circulatory system
CPT/HCPCS: 71046; 80053; 80061; 81003; 83036; 84484; 85025; 85027; 85379; 85730; 93005; 93306; 93458; 99152; 99153; 99285; C1894; Q9967